=== PATIENT | female | born 1970 | race Caucasian/White ===

== ENCOUNTER 2024-12-04 06:08 | Day surgery (SDC) | payer OTHER, SELFPAY ==
[2024-12-04] VITALS (8 sets, daily range): BP systolic 87–138; BP diastolic 64–89; BMI 24.7
[2024-12-04] MEDS: NORMOSOL-R/PLASMALYTE-A 1000 IV (11:36)
[2024-12-04] MEDS: EMEND 40 MG PO (11:40)
[2024-12-04 11:51] LABS: HCG, Urine Qualitative Screen Negative
== END 2024-12-04 14:10 | disposition home or self-care (01) ==
LOC: SDS 06:08
PROVIDERS: ATTENDING PHYSICIAN Obstetrics & Gynecology
DX: D25.9 Leiomyoma of uterus, unspecified (principal); N85.8 Other specified noninflammatory disorders of uterus; N95.0 Postmenopausal bleeding; N85.4 Malposition of uterus; Z85.3 Personal history of malignant neoplasm of breast
CPT/HCPCS: 58561; 88305; 81025